=== PATIENT | female | born 2000 | race Two or more races ===

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

== ENCOUNTER 2022-08-15 21:05 | Emergency (ER) | payer MEDICAID ==
[~2022-08-15] VITALS: Ht 152.4 cm; Wt 81.5 kg
[~2022-08-15 21:05] MED LIST: ONDA4TAB5 PO; TOPUD PO
[2022-08-15] MEDS ORDERED: HYDROCODONE/ACETAMINOPHEN 5/325MG TABLET PO STA (23:42)
[2022-08-16 00:23] LABS: BASOPHILS % 0.5 % (0.0-2.0); EOSINOPHILS % 0.7 % (0.0-5.0); HEMATOCRIT. 35.3 % (36.0-48.0); HEMOGLOBIN. 11.6 g/dL (12.0-16.0); MEAN CORPUSCULAR HEMOGLOBIN 26.9 pg (28.0-32.0); MEAN CORPUSCULAR VOLUME 81.8 fL (81.0-99.0); MEAN PLATELET VOLUME 8.8 fl (7.4-10.4); MONOCYTES % 6.6 % (2.0-8.0); NEUTROPHILS % 71.2 % (40.0-76.0); PLATELET 292 x1000/uL (130-400); RED BLOOD CELL COUNT 4.32 mill/uL (4.2-5.4); RED CELL DISTRIBUTION WIDTH 14.6 % (11.6-14.6)
[2022-08-16 00:30] LABS: CHLORIDE 106 mEq/L (98-107)
[2022-08-16 00:39] LABS: HCG SCREEN NEGATIVE
[2022-08-16] MEDS ORDERED: KETOROLAC 30MG/ML VIAL IM NR (02:00)
[2022-08-16] MEDS ORDERED: CEFTRIAXONE 1 G PREMIX 50 ML IV NR (02:15)
[2022-08-16] MEDS ORDERED: HYDROCODONE/ACETAMINOPHEN 5/325MG TABLET PO NR (02:15)
[2022-08-16 02:28] LABS: CLARITY URINE TURBID (CLEAR); COLOR URINE YELLOW (YELLOW); KETONES URINE 2+ (NEGATIVE); LEUKOCYTE ESTERASE URINE 2+ (NEGATIVE); NITRITE URINE NEGATIVE (NEGATIVE); OCCULT BLOOD URINE 1+ (NEGATIVE); PH URINE 6.5 (4.5-8.0); PROTEIN URINE 1+ (NEGATIVE)
[2022-08-16] MEDS: SODIUM CHLORIDE 0.9% 1,000 ML IV NR ×7 (04:01→08:20)
[2022-08-16 11:45] VITALS: BP 95/55
== END 2022-08-16 12:58 | disposition short-term general hospital (02) ==
LOC: ER 21:16 → CANBEDREQ 08-16 11:49 → ER 08-16 12:58
DX: K80.20 Calculus of gallbladder without cholecystitis without obstruction (principal)
CPT/HCPCS: 36415; 76705; 80053; 81003; 83605; 83690; 84703; 85025; 96361; 96365; 96372; 99285; J0696; J1885; Z7610